=== PATIENT | male | born 1945 | race Caucasian/White ===

== ENCOUNTER 2016-11-20 06:37 | Inpatient (IN) ==
[~2016-11-20 06:37] MED LIST: *HR* FentaNYL (PF) 100 MCG/2 ML VIAL ONE; *HR* Midazolam HCl 2 MG/2 ML VIAL ONE; *HR* Propofol 200 MG/20 ML VIAL IVP ONE; *HR* Remifentanil 1 MG VIAL IVP ONE; *HR* Succinylcholine 200 MG/10 ML VIAL IVP ONE; Dexamethasone 4 MG/ML VIAL ONE; Lidocaine -MPF 2% 2 ML VIAL ONE; Ondansetron 4 MG/2 ML VIAL ONE
[2016-11-20] MEDS ORDERED: CeFAZolin Pre 3,000 MG/100 ML 3,000 MG/100 ML BAG IVPB ONE (06:55)
[2016-11-20] MEDS ORDERED: Vancomycin 1,750 MG in D5% in Water 250 ML IVPB ONE (06:55)
[2016-11-20] MEDS ORDERED: Ringers Solution, Lactated 1,000 ML IVC SCH (07:00)
--- NOTE | 2016-11-20 07:02 | Anesthesia Evaluation PreOp ---
Date of Encounter: 11/20/16 Time of Encounter: 06:45 - Past History Planned Operation: fem fem bypass graft Cardiac History: Angina, HTN, Hyperlipidemia (Had a single episode of angina ten years ago when CAD diagnosed.) Pulmonary History: Former smoker (Quit smoking 18 months ago. Diagnosed with emphysema but is on no routine therapy.), [employer] History: Denies Any Significant HX Other Medical History: Denies Any Significant HX Anesthesia History: Past Anesthesia, Problems (Says he has a history of "caterina down" when sedated) Alcohol Use: none Drug use: none Medications and Allergies Alfuzosin HCl [Uroxatral] 10 mg PO HS 04/22/16 [History] Amlodipine Besylate 2.5 mg PO HS 04/22/16 [History] Atorvastatin [Lipitor] 10 mg PO HS 04/22/16 [History] Cholecalciferol (Vitamin D3) [Vitamin D3] 1,000 unit PO HS 04/22/16 [History] Gabapentin [Neurontin] 300 mg PO TID 04/22/16 [History] Melatonin [Melatin] 12 mg PO HS PRN 04/22/16 [History] Metoprolol [Lopressor] 12.5 mg PO HS 04/22/16 [History] Potassium Chloride [Klor-Con 10] 10 meq PO HS 04/22/16 [History] Tiotropium [Spiriva] 1 puff IH HS 04/22/16 [History] hydroCHLOROthiazide [Hydrochlorothiazide] 25 mg PO HS 04/22/16 [History] Cyanocobalamin (B-12) [Vitamin B12] 1,000 mcg PO HS 06/13/16 [History] Venlafaxine [Effexor] 37.5 mg PO HS 06/13/16 [History] lamoTRIgine [Lamictal] 25 mg PO TID 06/13/16 [History] OxyCODONE Immed Rel [Roxicodone 5 MG] 5 mg PO Q4H PRN #40 tablet 06/27/16 [Rx] Allergies tamsulosin [From Flomax] Allergy (Verified 03/19/15 09:16) Rash Staphylococcus Vaccine Adverse Reaction (Verified 04/22/16 09:11) See Comments feels weird - Meds/Allergy Pre-op Review Medications Reviewed: Yes Allergies Reviewed: Yes Beta Blockers on Current Med List: Yes (DC'd last month at OR. To resume after surgery.) Anesthesia Results - Labs Laboratory Tests 11/17/16 11/17/16 11/17/16 11:16 11:16 11:16 WBC 8.6 RBC 5.61 H Hgb 17.2 H Hct 50.4 H Plt Count 301 INR 1.1 Sodium 141 Potassium 3.3 L Chloride 105 Carbon Dioxide 24 BUN 9 - Imaging EKG: report reviewed (Sinus caterina, first degree block) Anesthesia Exam Selected Entries 11/20/16 06:51 Temperature 98.0 F Pulse Rate 55 Respiratory Rate 18 Blood Pressure 120/66 O2 Sat by Pulse Oximetry 93 Height: 67 inches Weight: 243 lbs NPO (# of Hours): over 8 hours - HEENT Pupil (Motor): Pupils equal Mallampati: II Teeth: Edentulous Oral Opening: Greater than 3 - Cardiac Rhythm: Regular - Pulmonary Breath Sounds: bilateral Clear Anesthesia Assess/Plan ASA Score: 3 Modified Vikram Scale for Level of Consciousness: Cooperative, oriented, and tranquil Anesthetic Plan: General Monitoring Plan: Standard Monitors Recovery Plan: PACU
[2016-11-20] MEDS ORDERED: Heparin 1,000 UNITS/500 mL NS 0 ML ONE (07:04)
[2016-11-20] MEDS ORDERED: Vancomycin 1,000 MG VIAL ONE (07:04)
[2016-11-20] MEDS ORDERED: Albuterol 2.5 MG/3 ML NEBULIZER IH ONE (07:12)
--- NOTE | 2016-11-20 07:36 | History & Physical Report ---
Date of Encounter: 11/20/16 Time of Encounter: 07:28 24 Hour HP Update - Instructions Instructions: If the History and Physical is less than 30 days old and was completed prior to A.M. admission and or procedure and has NOT been updated on calendar day of procedure please complete this update prior to performing procedure. - Update Patient reports changes in Medical Condition: No Changes in examination, assessment, or condition: No Changes in Medication: No Preop tests/diagnostics Reviewed: Yes Surgery Remains Indicated: Yes Consent for Planned Operative Procedure(s) Verified: Yes - Pre-Operative Checklist Preoperative Checklist Indicated: Yes Prophylactic Antibiotic Ordered: Yes (vancomycin due to MRSA risk) Home Medications Include Beta Miriam: Yes Beta Miriam Taken Today (Day of Surgery): Yes Beta Miriam Taken Yesterday (Day Prior to Surgery): Yes Is VTE Prophylaxis Indicated?: Yes
[2016-11-20] MEDS ORDERED: Vancomycin 1,750 MG in D5% in Water 500 ML IVPB ONE (07:45)
[2016-11-20] MEDS ORDERED: EPHEDrine 50 MG/ML VIAL ONE (08:36)
[2016-11-20] MEDS ORDERED: *HR* Heparin 5,000 UNIT/ML VIAL ONE (09:19)
[2016-11-20] MEDS ORDERED: *HR* Morphine 10 MG/ML VIAL ONE (10:12)
--- NOTE | 2016-11-20 10:48 | Anesthesia Evaluation Post Op ---
Date of Encounter: 11/20/16 Time of Encounter: 10:50 - Vital Signs Vital Signs: Selected Entries 11/20/16 06:51 Temperature 98.0 F Pulse Rate 55 Respiratory Rate 18 Blood Pressure 120/66 O2 Sat by Pulse Oximetry 93 - Lungs Lungs: Clear Ascult./Percussion - Airway Airway: Non-obstructed - Cardiovascular Regular Rate - Mental Status Mental Status: Alert & Oriented, Answers Appropriately - Nausea Vomiting Nausea Vomiting: Not Present - Hydration Hydration: NPO - Discharge PostOp Status: Transfer Patient to floor
--- NOTE | 2016-11-20 11:00 | Operative Note ---
Date of procedure: 11/20/16 Pre-op diagnosis: Peripheral vascular disease with disabling claudication Post-op diagnosis: same Procedure: 1. Right common femoral endarterctomy. 2. Femoral to femoral artery bypass graft thrombectomy with 4 liberian and 5 liberian jesus thrombectomy catheters. 3. Revision of the right limb of the femoral to femoral artery bypass graft.. Complications: None Anesthesia: GETA Surgeon: Geovanny Velasquez Estimated blood loss (cc): 200 Specimen: Graft thrombus and arterial plaque Condition: stable Disposition: PACU Procedure in Detail: Indications: The patient is a 71 year old male with a history of a femoral to femoral artery bypass due to an occluded right iliac artery. The patient reported recurrent disabling claudication and his CT revealed an occluded bypass graft. Surgery was recommended for symptomatic relief and reduce his risk of limb loss. Procedure: The patient was identified in the preoperative area. The risks, benefits, and alternatives of the procedure were discussed. All questions were answered. He was then taken to the operating room and placed in supine position on the operating room table. After the induction of general endotracheal anesthesia, he was cleaned and draped in normal sterile fashion. An oblique incision was made over the right groin sharply. Hemostasis was obtained with electrocautery. Through a process of blunt, sharp, and electrocautery dissection, the right femoral vessels were dissected circumferentially and surrounded with vessel loops. The graft anastamosis and right limb were also dissected circumferentially and surrounded witha vessel loop. The patient received 5000 units of heparin intravenously. After waiting for the heparin to circulate, the vessels were occluded and a longitudinal graftomy was made sharply. This was extended into the [place] right common femoral artery through the anastamosis. Using a 5 liberian jesus embolectomy catheter, a thrombectomy was performed. This removed significant thrombus and revealed a small amount of flow. A 4 liberian jesus catherter was then passed multiple times through the anastmosis. A large firm thrombus plug was retrieved and then brisk, pulsatile flow was noted. Additional passes revealed no additional thrombus. The graft was flushed with heparinized saline and occluded. The [place] femoral artery was next inspected and significant intimal hyperplasia was noted to be present along the anastamosis. the intimal hyperplasia was noted to be extending over and into the anastamosis. Using a dental freer, an endarterectomy was performed. The plaque and hyperplasia was removed sharply with Hartmann scissors. The endpoints were inspected and no elevated flaps were noted. The graft limb was then noted to be redundant near the anastamosis. A wedge of the graft was excised. This allowed for closure of the graftotomy and arteriotomy without a kink. The vessels and graft were flushed individually and then reoccluded. Heparinized saline was infused into the lumen. The graft and arteriotomy were sutured with a running 6-0 Prolene. Prior to completing the anastamosis, the graft and vessels were flushed again and heparin was infused into the lumen. The closure was completed and flow was restored in the right lower extremity. Thrombin and gelfoam were used to aid in hemostasis. Polyphasic signals were noted distal to the graft The wound was irrigated with antibiotic-containing saline. Platelet rich and platelet poor plasma were infused into the wounds. Meticulous hemostasis was obtained throughout the wound with electrocautery. The wound was reapproximated with layers of 2-0 and 3 -0 Vicryl. The skin was reapproximated with 3-0 Monocryl. A sterile dressing was applied. The patient was extubated and taken to recovery room in stable condition.
[2016-11-20] MEDS ORDERED: *HR* Labetalol 20 MG/4 ML SYRINGE IVP PRN (11:06)
[2016-11-20] MEDS ORDERED: Naloxone 0.4 MG/ML INJ IVP PRN (11:06)
[2016-11-20] MEDS ORDERED: Melatonin 3 MG TABLET PO PRN (11:06)
[2016-11-20] MEDS ORDERED: *HR* OxyCODONE Immed Rel 5 MG TABLET PO PRN (11:06)
[2016-11-20] MEDS ORDERED: Ondansetron 4 MG/2 ML VIAL IVP PRN (11:06)
[2016-11-20] MEDS ORDERED: *HR* Morphine 2 MG/ML SYRINGE IVP PRN (11:06)
[2016-11-20] MEDS ORDERED: Acetaminophen 325 MG TABLET PO PRN (11:06)
[2016-11-20] MEDS ORDERED: *HR* HYDROcodone/Acet 5/325 mg TABLET PO PRN (11:06)
[2016-11-20] MEDS ORDERED: Tiotropium 18 MCG inhalation IH PRN (11:06)
[2016-11-20] MEDS: *HR* Metoprolol 5 MG/5 ML VIAL IVP SCH ×3 (12:00→23:40)
[2016-11-20] MEDS: ceFAZolin 3,000 MG in D5% in Water 100 ML IVPB SCH ×5 (14:57→23:08)
[2016-11-20] MEDS: lamoTRIgine 25 MG TABLET PO SCH ×2 (15:06→21:37)
[2016-11-20] MEDS ORDERED: Vancomycin 2,000 MG in D5% in Water 500 ML IVPB ONE (18:00)
[2016-11-20] MEDS ORDERED: *HR* Heparin 5,000 UNIT/ML VIAL SQ SCH (18:00)
[2016-11-20] MEDS: *HR* Heparin 5,000 UNIT/ML VIAL SQ SCH (18:13)
[2016-11-20] MEDS ORDERED: Cyanocobalamin (B-12) 1,000 MCG TABLET PO SCH (21:00)
[2016-11-20] MEDS ORDERED: (Alfuzosin Hcl [Uroxatral] 10 MG) PO SCH (21:00)
[2016-11-20] MEDS ORDERED: Cholecalciferol (D-3) 1,000 UNIT TABLET PO SCH (21:00)
[2016-11-20] MEDS ORDERED: hydroCHLOROthiazide 25 MG TABLET PO SCH (21:00)
[2016-11-20] MEDS ORDERED: amLODIPine 5 MG TABLET PO SCH (21:00)
[2016-11-21] MEDS: *HR* Metoprolol 5 MG/5 ML VIAL IVP SCH (04:51)
[2016-11-21 05:10] LABS: Basophils % 0.3 %; Eosinophils # 0.1 K/mcL (0.0-0.6); Eosinophils % 1.2 %; Hematocrit 44.6 % (37.5-50.1); Immature Granulocytes % 0.5 % (0-4); Lymphocytes # 1.8 K/mcL (0.6-4.6); Lymphocytes % 14.9 %; Mean Corpuscular HGB Conc 34.5 g/dL (31.6-35.5); Mean Corpuscular Hemoglobin 30.9 pg (28.0-33.3); Mean Corpuscular Volume 89.4 fL (83.0-100.0); Mean Platelet Volume 9.4 fL (9.4-12.4); Monocytes # 1.1 K/mcL (0.0-1.3); Monocytes % 9.1 %; Neutrophils # 8.8 K/mcL (1.6-8.9); Platelet Count 235 K/mcL (140-400); Red Blood Count 4.99 M/mcL (4.19-5.50); Red Cell Distribution Width 13.9 % (11.5-14.5)
[2016-11-21] MEDS: *HR* Heparin 5,000 UNIT/ML VIAL SQ SCH (05:17)
[2016-11-21 05:20] LABS: Hemoglobin 15.4 g/dL (12.9-16.9)
[2016-11-21 05:33] LABS: BUN/Creatinine Ratio 10 (6-26); Blood Urea Nitrogen 8 mg/dL (8-26); Calcium 9.1 mg/dL (8.6-10.8); Carbon Dioxide 27 mEq/L (19-29); Chloride 104 mEq/L (98-109); Glucose 97 mg/dL (70-99); Osmolality,Calculated 286 (280-300); Potassium 3.3 mEq/L (3.5-4.5); Sodium 139 mEq/L (136-145); eGFR For African Americans > 60 (> 60); eGFR For Non-African Americans > 60 (> 60)
--- NOTE | 2016-11-21 07:37 | Discharge Summary ---
Date of Encounter: 11/21/16 Time of Encounter: 07:40 - Discharge Diagnosis (1) Atheroscler nonbiologic bypass graft right leg w/intermit claudication Priority: Primary Status: Chronic Comments: The patient is postoperative day #1 after graft thrombectomy and femoral endarterectomy. He reports that he is feeling better. He will be started on Plavix. He will be discharged today. (2) COPD (chronic obstructive pulmonary disease) Priority: Secondary Status: Chronic Qualifiers: COPD type: emphysema Emphysema type: panlobular Qualified Code(s): J43.1 - Panlobular emphysema (3) Essential hypertension Priority: Secondary Status: Chronic Comments: He was counseled regarding atheorsclerotic risk factor reduction. (4) Mixed hyperlipidemia Priority: Secondary Status: Chronic (5) CAD (coronary artery disease) Priority: Secondary Status: Chronic Qualifiers: Coronary Disease-Associated Artery/Lesion type: [place] artery [place] vs. transplanted heart: eagle heart Associated angina: without angina Qualified Code(s): I25.10 - Atherosclerotic heart disease of [place] coronary artery without angina pectoris - Discharge Medications Prescriptions: OxyCODONE/APAP 5/325 [Percocet 5/325 MG] 1 each PO Q4HR PRN #30 tablet PRN Reason: POSTOPERATIVE PAIN Clopidogrel [Plavix] 75 mg PO DAILY #30 tablet Home Medications: Alfuzosin HCl [Uroxatral] 10 mg PO HS 04/22/16 [History] Amlodipine Besylate 2.5 mg PO HS 04/22/16 [History] Atorvastatin [Lipitor] 10 mg PO HS 04/22/16 [History] Cholecalciferol (Vitamin D3) [Vitamin D3] 1,000 unit PO HS 04/22/16 [History] Melatonin [Melatin] 12 mg PO HS PRN 04/22/16 [History] Potassium Chloride [Klor-Con 10] 10 meq PO HS 04/22/16 [History] Tiotropium [Spiriva] 1 puff IH HS PRN 04/22/16 [History] hydroCHLOROthiazide [Hydrochlorothiazide] 25 mg PO HS 04/22/16 [History] Cyanocobalamin (B-12) [Vitamin B12] 1,000 mcg PO HS 06/13/16 [History] lamoTRIgine [Lamictal] 75 mg PO TID 06/13/16 [History] Aspirin Enteric Coated [Aspirin EC] 81 mg PO DAILY 11/20/16 [History] Clopidogrel [Plavix] 75 mg PO DAILY #30 tablet 11/21/16 [Rx] OxyCODONE/APAP 5/325 [Percocet 5/325 MG] 1 each PO Q4HR PRN #30 tablet 11/21/16 [Rx] Allergies/Adverse Reactions: Allergies tamsulosin [From Flomax] Allergy (Verified 03/19/15 09:16) Rash Staphylococcus Vaccine Adverse Reaction (Verified 04/22/16 09:11) See Comments feels weird Date of admission: 11/20/16 10:58 Primary care physician: PCP [place] Procedure(s) Performed: Right femoral endarterectomy, thrombectomy of FEM-FEM bypass graft with revision. Discharging clinician: Geovanny Velasquez Anticipated date of discharge: 11/21/16 - Patient Status Disposition: Home, Self-Care Condition: Good Functional capacity at discharge: independent ambulation Overall status at discharge: patient is back to baseline - Discharge Instructions Instructions: Oxycodone/Acetaminophen (By mouth), Clopidogrel (By mouth), Femoropopliteal Bypass (DC) Follow Up With: Geovanny Velasquez MD [Partnered Physician] - 12/31/16 1:20 pm [place],PCP [Primary Care Provider] - 11/25/16 1:30 pm Additional Instructions: MAY REMOVE BANDAGE AND SHOWER ON 11/22/16. WASH WOUND GENTLY AND PAT TO DRY. APPLY DRY GAUZE TO WOUND DAILY FOR 7 DAYS. NO DRIVING FOR 7 DAYS. NO TUB BATHS OR SWIMMING UNTIL 12/18/16. CALL DR. VELASQUEZ AT [phone] WITH QUESTIONS OR CONCERNS. INCREASE ACTIVITY TOLERATED. ADVANCE BACK TO YOUR NORMAL DIET. - Diet and Activity Activity: increase activity as tolerated Diet: advance to your usual diet - Hospital Course Hospital course: Mr. Raymond is a 71 year old male with a history of hypertension, hyperlipidemia, coronary artery disease, COPD and peripheral vascular disease. He was admitted on 11/20/16 and underwent a right femoral endarterectomy and thrombectomy of his FEM-FEM bypass graft due to disabling right lower extremity claudication. He tolerated the procedure well and was discharged in stable condition on postoperative day #1 without complication. He has been started on clopidogrel. - Time Spent with Patient Total time spent providing and/or coordinating discharge services: Exam Vital Signs, Last 4 Hours Temp Pulse Resp BP Pulse Ox 11/21/16 05:15 50 11/21/16 04:42 97.5 F L 55 16 144/71 92 General: Present: Conversant, No Apparent Distress HEENT: Present: Pupils equal Cardiac: Present: Reg Rate and Rhythm Lungs: Present: Normal Breath Sounds Neuro: Present: Alert and responsive, No focal deficits noted, Motor nerves grossly intact, Sensory nerves grossly intact Abdomen: Present: Non-tender Vascular: Present: Normal capillary refill, Pulse, normal. Absent: Cyanosis, Edema - VTE Documentation of Mechanical Device: Intermittent pneumatic compression device
[2016-11-21 07:39] VITALS: BP 148/63
[2016-11-21] MEDS: lamoTRIgine 25 MG TABLET PO SCH (08:12)
[2016-11-21] MEDS ORDERED: Aspirin Enteric Coated 81 MG Tablet PO SCH (09:00)
== END 2016-11-21 10:20 | disposition home or self-care (01) | DRG 254 ==
LOC: SAMDAY 06:37 → 2NNU 10:58
PROVIDERS: ADMIT Surgery; ATTEND Surgery
PROC: VASFFBG (ICD-10-PCS; 2016-11-20 07:45)